=== PATIENT | male | born 1965 | race Caucasian/White ===

== ENCOUNTER → 2018-01-08 | Outpatient (CLI) | payer BC | END | disposition home or self-care (01) | LOC: C.CPL 12:24 | PROVIDERS: ATTEND Orthopaedic Surgery Sports Medicine | DX: M67.431 Ganglion, right wrist (principal); R94.31 Abnormal electrocardiogram [ECG] [EKG] ==

== ENCOUNTER → 2018-01-11 | Outpatient (CLI) | payer BC | LOC: C.LABSPEC 16:59 | PROVIDERS: ATTEND Orthopaedic Surgery Sports Medicine | DX: M67.40 Ganglion, unspecified site (principal); M77.8 Other enthesopathies, not elsewhere classified ==

== ENCOUNTER → 2018-01-11 | Outpatient (CLI) | payer BC | LOC: C.PATHSPEC 17:23 | PROVIDERS: ATTEND Orthopaedic Surgery Sports Medicine | DX: D21.11 Benign neoplasm of connective and other soft tissue of right upper limb, including shoulder (principal); L98.499 Non-pressure chronic ulcer of skin of other sites with unspecified severity ==